=== PATIENT | female | born 1940 | race Two or more races ===

== ENCOUNTER 2022-03-21 09:30 | Inpatient (IN) | payer OTHER ==
[~2022-03-21] VITALS: Ht 170.2 cm; Wt 72.6 kg
[2022-03-21] MEDS ORDERED: TARKA PO (11:09)
[2022-03-21] MEDS ORDERED: LIPITO PO (11:09)
[2022-04-03] MEDS ORDERED: ATORVASTATIN CA10 MG PO (08:19)
[2022-04-03] MEDS ORDERED: OMEPRAZOLE40 MG PO (08:20)
[2022-04-03] MEDS ORDERED: ESOMEPRAZOLE MA40 MG PO (08:20)
[2022-04-03] MEDS ORDERED: TRANDOLAPR-VER1 EAC3 PO (08:21)
[2022-04-05] MEDS ORDERED: PERCOCET 5-3251 EACH PO (12:49)
[2022-04-05] MEDS ORDERED: INTESTINEX680 M1 PO (13:49)
[2022-04-05] MEDS ORDERED: MIRALAX17 GM PO (13:49)
== END 2022-04-05 14:32 | disposition home or self-care (01) | DRG 331 ==
LOC: O/R 04-03 05:40 → SURH 04-03 06:00
PROVIDERS: ADMIT Surgery; ATTEND Surgery
PROC: 0DBP4ZZ Excision of Rectum, Percutaneous Endoscopic Approach (ICD-10-PCS; 2022-04-03)
PROC: 0DJD8ZZ Inspection of Lower Intestinal Tract, Via Natural or Artificial Opening Endoscopic (ICD-10-PCS; 2022-04-03)
PROC: 0DTN4ZZ Resection of Sigmoid Colon, Percutaneous Endoscopic Approach (ICD-10-PCS; principal; 2022-04-03 06:00)
DX: K57.32 Diverticulitis of large intestine without perforation or abscess without bleeding (principal); K58.9 Irritable bowel syndrome, unspecified